=== PATIENT | female | born 1980 | race Caucasian/White ===

== ENCOUNTER → 2016-09-20 | Outpatient (CLI) | payer OTHER | LOC: FIMAGING 09:53 | PROVIDERS: ATTEND Obstetrics & Gynecology | DX: O09.521 Supervision of elderly multigravida, first trimester (principal); Z3A.12 12 weeks gestation of pregnancy ==

== ENCOUNTER → 2016-11-10 | Outpatient (CLI) | payer OTHER | LOC: FIMAGING 09:59 | PROVIDERS: ATTEND Obstetrics & Gynecology | DX: O09.522 Supervision of elderly multigravida, second trimester (principal); O44.02 Complete placenta previa NOS or without hemorrhage, second trimester; Z3A.19 19 weeks gestation of pregnancy ==

== ENCOUNTER → 2017-01-09 | Outpatient (CLI) | payer OTHER | LOC: FIMAGING 13:50 | PROVIDERS: ATTEND Obstetrics & Gynecology | DX: O44.02 Complete placenta previa NOS or without hemorrhage, second trimester (principal); Z3A.28 28 weeks gestation of pregnancy ==

== ENCOUNTER 2017-04-05 06:40 | Inpatient (IN) | payer OTHER ==
[2017-04-05] MEDS ORDERED: OXYTOCIN 20 UNIT in LR 1,000 ML IV PRN (07:43)
[2017-04-05] MEDS ORDERED: TERBUTALINE SULFATE 1 MG/ML VIAL IV PRN (07:43)
[2017-04-05] MEDS ORDERED: OLIVE OIL 118 ML BTL MISC PRN (07:43)
[2017-04-05] MEDS ORDERED: EPSOM SALT 454 GM TP PRN (07:43)
[2017-04-05] MEDS ORDERED: LR 1,000 ML IV PRN (07:43)
[2017-04-05] MEDS ORDERED: OXYTOCIN 10 UNIT/ML VIAL ONE ×2 (08:41→10:12)
[2017-04-05 08:46] LABS: PLATELET COUNT 175 10^3/uL (150-400)
[2017-04-05] MEDS ORDERED: LR 500 ML IV PRN (08:59)
[2017-04-05] MEDS ORDERED: OXYTOCIN 30 UNIT in NS 500 ML IV SCH (09:00)
[2017-04-05] MEDS: guaiFENesin 600 MG TAB.ER PO SCH ×2 (09:52→23:48)
[2017-04-05] MEDS ORDERED: LIDOCAINE 1% 300 MG/30 ML SDV ONE (10:11)
[2017-04-05] MEDS ORDERED: AMMONIA AROMATIC 1 EACH AMP IH ONE (10:12)
[2017-04-05] MEDS ORDERED: OLIVE OIL 118 ML BTL ONE (10:12)
[2017-04-05] MEDS ORDERED: TERBUTALINE SULFATE 1 MG/ML VIAL ONE (10:12)
[2017-04-05] MEDS ORDERED: MISOPROSTOL 200 MCG TAB ONE (10:13)
--- NOTE | 2017-04-05 10:54 | GHP ---
[f rep st] PREOP HISTORY AND PHYSICAL DATE OF ADMISSION: 04/05/2017 ADMITTING DIAGNOSIS: Intrauterine at 40-3/7 weeks' gestation, for elective induction of la bor. HISTORY OF PRESENT ILLNESS: The patient is a 36-year-old 2, para 1-0-0-1, with a last menstr ual period of 06/26/2016, an EDC of 04/02/2017, which was confirmed by an 8-week ultrasound. The toby lora has had good care at [facility] since registration at 8 weeks' gestation and has progressed to 40-3/7 weeks' gestation. Her risk factors include advanced maternal age, age 36. She has had a negative screening and normal ultrasounds in this . She h ad a history of a placenta previa early in , but it resolved with time. She has a history o f a superficial blood clot in her arm when she was on the NuvaRing. She was evaluated by Hematology, had a negative thrombophilia workup. She did stop her hormonal contraception and has never had an i ssue again. Never been on any anticoagulation and was not anticoagulated in this . She had a history of a galactocele after she weaned her first baby, which resolved with pressure. She is al lergic to penicillin. It was a childhood reaction. She is unsure. No other risk factors a nd patient is feeling well today. REVIEW OF SYSTEMS: In general, negative review of systems. She had a Manning catheter placed the even ing of the and had minor cramping overnight, but has resolved. PAST OBSTETRIC HISTORY: In September of 2013, patient had a viable male, 7 pounds 3 ounces, vaginal deliv rachel, greater than 24 hours in labor. She was induced for postdates. Baby weighed 7 pounds 3 ounces. This is her second . PAST GYNECOLOGICAL HISTORY: The above-mentioned superficial blood clot in her arm on the NuvaRing. No other gynecological issues. No abnormal Paps. PAST MEDICAL HISTORY: The patient has no significant past medical history. PAST SURGICAL HISTORY: Only past surgical history was a knee surgery in 2009. ALLERGIES: She is allergic to penicillin. It was childhood reaction. She is not sure. No other al lergies. MEDICATIONS: Include vitamins and DHA. LABORATORY DATA: She is A positive, antibody negative, RPR nonreactive, rubella immune, hepatitis ne gative, HIV negative. Cystic fibrosis, SMA, fragile X negative. Pap normal. Gonorrhea and chlamydi a negative. was negative. One-hour GTT 137, 3-hour was normal. GBS is negative. SOCIAL HISTORY: She is . She lives with her and her son. She works in [employer]. She denies tobacco, alcohol, and drug use. FAMILY HISTORY: Paternal grandmother and paternal uncle had myocardial infarctions and heart disease . Mother has chronic hypertension. Maternal grandfather emphysema. Maternal uncle diabetes. Mary r has gallbladder disease. Father has migraines. Mother and brother both have anxiety disorders. T hat is all. OBJECTIVE: VITAL SIGNS: Today she is afebrile. Vital signs are stable. heart tones were 140 s, reactive, moderate variability, category 1. Contractions are irregular. GENITOURINARY: Cervix: On exam, Manning catheter was removed without difficulty. Her cervix is 4, 75 %, -1, with a bulging bag of water. The baby is cephalic. ASSESSMENT AND PLAN: A 36-year-old, 2, para 1-0-0-1, at 40-3/7 weeks' gestation for inductio n of labor. The patient is on Pitocin per protocol. We will increase this morning and have patient active. The patient will desire an epidural for pain control and will have artificial rupture of mem branes when comfortable. /[id number]/MODL
[2017-04-05] MEDS ORDERED: fentaNYL 2MCG/ML/BUP 0.1% RTU 100 ML BAG EP ONE (12:30)
[2017-04-05] MEDS ORDERED: fentaNYL 100 MCG/2 ML INJ ONE (12:30)
[2017-04-05] MEDS ORDERED: BUPIVACAINE 0.25% 30 ML SDV ONE (12:31)
[2017-04-05] MEDS ORDERED: PHENYLEPHRINE HCL 100 MCG/ML SYR IVP PRN (13:43)
[2017-04-05] MEDS ORDERED: ONDANSETRON 4 MG/2 ML VIAL IVP PRN (13:43)
--- NOTE | 2017-04-05 13:43 | PREANESOB ---
Obstetric Pre-Anesthesia Info - General Info Proposed Procedure: CHAO : 2 Para: 1 PETRA: 04/02/17 Gestational Age: 40 week(s) and 3 day(s) - Info Status: Full Term Monitors: External FHR Pattern: Reassuring - Labor Status Pitocin: Planned Indications for Labor Analgesia: Pain Control Labor Epidural: Yes Anesthesia ROS: negative Allergies/Adverse Reactions: Allergy/AdvReac Type Severity Reaction Status Date / Time Penicillins Allergy Unknown Verified 10/04/13 06:33 Home Medications: Medication Instructions Recorded Feosol 1 tab PO DAILY 10/04/13 [place] 3 1,000 mg Softgel 1 tab PO BID 10/04/13 1 tab PO DAILY 10/04/13 Visit Medications: Generic Name Dose Route Start Last Admin Trade Name Freq PRN Reason Stop Dose Admin Guaifenesin 600 mg 04/05/17 09:30 04/05/17 09:52 Mucinex PO 10/02/17 09:29 600 mg BID ASHA Administration Lactated Ringer's 1,000 mls @ 0 mls/hr 04/05/17 07:43 04/05/17 08:30 Lr IV 04/06/17 07:42 1,000 mls PRN PRN Administration SEE PROTOCOL CONDITIONS Protocol Per Protocol Oxytocin 20 unit/ Lactated 1,002 mls @ 150 mls/hr 04/05/17 07:43 Ringer's IV PRN PRN Post- bleeding Lactated Ringer's 500 mls @ 500 mls/hr 04/05/17 08:59 Lr IV 04/06/17 08:59 PRN PRN Maternal Hypotension Oxytocin 30 unit/ Sodium 503 mls @ 0 mls/hr 04/05/17 09:00 04/05/17 08:45 Chloride IV 10/02/17 08:59 503 mls CONT ASHA Administration Protocol Per Protocol Ibuprofen 600 mg 04/05/17 07:43 Motrin PO 10/02/17 07:42 Q6HRS PRN post , inflammation Magnesium Sulfate 454 gm 04/05/17 07:43 Epsom Salt TP 10/02/17 07:42 Q1H PRN perineal discomfort Ada Oil 118 ml 04/05/17 07:43 Sweet Oil MISC 10/02/17 07:42 ONCE PRN perineal massage Terbutaline Sulfate 0.25 mg 04/05/17 07:43 Brethine IV 10/02/17 07:42 ONCE PRN Tachysystole Discontinued Medications Generic Name Dose Route Start Last Admin Trade Name Ashwin PRN Reason Stop Dose Admin Ammonia (Aromatic Spirit) Confirm 04/05/17 10:12 Ammonia Aromatic Administered 04/05/17 10:13 Dose 1 each IH .STK-MED ONE Bupivacaine HCl Confirm 04/05/17 12:31 Sensorcaine 0.25% Sdv Administered 04/05/17 12:32 Dose 30 ml .ROUTE .STK-MED ONE Fentanyl Confirm 04/05/17 12:30 Sublimaze Administered 04/05/17 12:31 Dose 100 mcg .ROUTE .STK-MED ONE Fentanyl/Bupivacaine HCl Confirm 04/05/17 12:30 Fentanyl/Bupivacaine/Ns 2 Mcg/Ml 0.1% (Premix Administered 04/05/17 12:31 Dose 100 ml EP .STK-MED ONE Lidocaine HCl Confirm 04/05/17 10:11 Lidocaine Hcl 1% Administered 04/05/17 10:12 Dose 300 mg .ROUTE .STK-MED ONE Misoprostol Confirm 04/05/17 10:13 Cytotec Administered 04/05/17 10:14 Dose 1,000 mcg .ROUTE .STK-MED ONE Ada Oil Confirm 04/05/17 10:12 Sweet Oil Administered 04/05/17 10:13 Dose 118 ml .ROUTE .STK-MED ONE Oxytocin Confirm 04/05/17 08:41 Pitocin Administered 04/05/17 08:42 Dose 30 unit .ROUTE .STK-MED ONE Oxytocin Confirm 04/05/17 10:12 Pitocin Administered 04/05/17 10:13 Dose 40 unit .ROUTE .STK-MED ONE Terbutaline Sulfate Confirm 04/05/17 10:12 Brethine Administered 04/05/17 10:13 Dose 1 mg .ROUTE .STK-MED ONE - Anesthesia History Response to Local Anesthetics: Normal Anesthesia & Operative History: No Prior Problems Family Anesthesia History: Not Applicable - Social History Substance Use/Abuse: Denies - Vital Signs Latest Vital Signs (Nursing): see nsg notes Height/Weight (Nursing): Height 162.56 cm Weight 79.832 kg - Focused Exam Neck exam: FROM Mallampati Score: Class 2 Mouth exam: normal dental/mouth exam Pulmonary: no respiratory distress Cardiovascular: regular rate and rhythym Labs: 04/05/17 08:30 Patient ABO/Rh A POSITIVE 04/05/17 08:30 - Plan Consent Signed and on Chart: Yes Patient/Guardian Understands and Agrees to Plan: Yes Urgent/Emergent Case: Elliott taylor completed preop but documented later for safe timely pt care
[2017-04-05] MEDS ORDERED: fentaNYL 2MCG/ML/BUP 0.1% RTU 100 ML EP SCH (14:00)
[2017-04-05] MEDS ORDERED: LR 500 ML IV SCH (14:00)
--- NOTE | 2017-04-05 14:32 | OBPROG ---
Labor Progress Note Assessment/Plan: Assessment: 36 y/o @ 40 3/7 weeks elective IOL secondary to suspected LGA Plan: AROM now and pt is progressing well on pitocin. Comfortable with her epidural. Continue current management. 04/05/17 14:32 Subjective/Intrapartum Course: 04/05/17 14:28 Pt is now comfortable with her epidural. She had stronger contractions prior to epidural. Objective: 04/05/17 08:30 Patient ABO/Rh A POSITIVE 04/05/17 08:30 - SVE Dilation (cm): 6 Effacement (%): 75 Station: -2 Membranes: AROM Amniotic Fluid Color: Clear - Contraction Pattern Assessment Current Contraction Pattern: Regular (Q 3) - FHR Assessment Minor FHR (bpm): 130 FHR Pattern Variability: Moderate FHR Category: 1 - Procedures Non-surgical Procedures: Amniotomy - AP Antepartum Course: 04/05/17 14:30 AMA, normal testing, placenta previa resolved, h/p superficial blood clot in arm on OCP's (-) thrombophillia work-up, h/p galactrocele after weining G1, PCN allergy- childhood rxn Oxytocin Orders Assessment - Pre-Induction/Augmentation Assessment Gestational Age: 40 week(s) and 3 day(s) ICD10 Worksheet Patient Problems: Problems Problem Status Onset (spontaneous vaginal delivery) Acute
--- NOTE | 2017-04-05 17:46 | OBPROG ---
Labor Progress Note Assessment/Plan: Assessment: 36 y/o @ 40 3/7 weeks elective IOL secondary to suspected LGA Plan: Pt is progressing well, will bolus epidural prn. Re check 1-2 hours. status reassuring. 04/05/17 14:32 04/05/17 17:45 Subjective/Intrapartum Course: 04/05/17 14:28 Pt is now comfortable with her epidural. She had stronger contractions prior to epidural. 04/05/17 17:44 Pt is doing well feel some increased pelvic pain and rectal pressure. Objective: 04/05/17 08:30 Patient ABO/Rh A POSITIVE 04/05/17 08:30 - SVE Dilation (cm): 8 Effacement (%): 90 Station: 0 Membranes: AROM Amniotic Fluid Color: Clear - Contraction Pattern Assessment Current Contraction Pattern: Regular (Q 3-4) - FHR Assessment Minor FHR (bpm): 140 FHR Pattern Variability: Moderate FHR Category: 1 - Procedures Non-surgical Procedures: Amniotomy - AP Antepartum Course: 04/05/17 14:30 AMA, normal testing, placenta previa resolved, h/p superficial blood clot in arm on OCP's (-) thrombophillia work-up, h/p galactrocele after weining G1, PCN allergy- childhood rxn Oxytocin Orders Assessment - Pre-Induction/Augmentation Assessment Gestational Age: 40 week(s) and 3 day(s) ICD10 Worksheet Patient Problems: Problems Problem Status Onset (spontaneous vaginal delivery) Acute
[2017-04-05] MEDS ORDERED: HYDROCODONE/APAP 5/325 TAB PO PRN (20:29)
[2017-04-05] MEDS ORDERED: ACETAMINOPHEN 325 MG TAB PO PRN (20:29)
[2017-04-05] MEDS ORDERED: HYDROCORTISONE 0.5% CREAM TP PRN (20:29)
[2017-04-05] MEDS ORDERED: SIMETHICONE 80 MG TAB CHEW PO PRN (20:29)
--- NOTE | 2017-04-05 20:33 | OBDEL ---
Info Type: Vaginal Presentation at Delivery: Vertex L&D Analgesia/Anesthesia Type: Epidural GBS+: No Intrapartum Medications: Generic Name Dose Route Start Last Admin Trade Name Freq PRN Reason Stop Dose Admin Guaifenesin 600 mg 04/05/17 09:30 04/05/17 09:52 Mucinex PO 10/02/17 09:29 600 mg BID ASHA Administration Lactated Ringer's 1,000 mls @ 0 mls/hr 04/05/17 07:43 04/05/17 08:30 Lr IV 04/06/17 07:42 1,000 mls PRN PRN Administration SEE PROTOCOL CONDITIONS Protocol Per Protocol Oxytocin 30 unit/ Sodium 503 mls @ 0 mls/hr 04/05/17 09:00 04/05/17 08:45 Chloride IV 10/02/17 08:59 503 mls CONT ASHA Administration Protocol Per Protocol - Hospital Course Intrapartum: 04/05/17 14:28 Pt is now comfortable with her epidural. She had stronger contractions prior to epidural. 04/05/17 17:44 Pt is doing well feel some increased pelvic pain and rectal pressure. Indications for Delivery: Elective (LGA) Vaginal Delivery - Delivery Provider Delivery Physician/CNM: Ashley Ferro - Labor and Delivery Onset of Contractions Date: 04/05/17 Onset of Contractions Time: 16:00 Onset of Contractions Type: Induced Rupture of Membranes Date: 04/05/17 Rupture of Membranes Time: 14:26 Rupture of Membranes Type: Artificial Amniotic Fluid Color: Clear Dilation Complete Date: 04/05/17 Dilation Complete Time: 18:45 Placenta Delivery Date: 04/05/17 Placenta Delivery Time: 20:22 Total Hours of Labor: 4 Non-surgical Procedures: Amniotomy Laceration: Other (Specify) (intact perineum) Vaginal Sponge Count Correct: Yes Vaginal Needle Count Correct: Yes Vaginal Sweep Performed: No EBL: 200 Delivery Events: None - Medications Labor Augmentation/Induction Methods Used: Pitocin Labor Augmentation/Induction Indication: Elective, LGA Data PETRA: 04/02/17 Gestational Age: 40 week(s) and 3 day(s) Minor Delivery Date: 04/05/17 Delivery Time: 20:18 Sex of : Male Score (1 Min): 8 Score (5 Min): 9 ICD10 Worksheet Patient Problems: Problems Problem Status Onset (spontaneous vaginal delivery) Acute
[2017-04-05] MEDS: IBUPROFEN 600 MG TAB PO PRN (20:40)
[2017-04-06] MEDS: IBUPROFEN 600 MG TAB PO PRN ×4 (02:39→21:54)
[2017-04-06] MEDS: DOCUSATE SODIUM 100 MG CAP PO PRN ×2 (07:54→21:54)
--- NOTE | 2017-04-06 09:08 | OBPP ---
Progress Note Assessment/Plan: Assessment: s/p PPD # 1 - pt is stable Plan: Continue routine pp care Plan for d/c home in am /12 04/06/17 09:07 Subjective/ Course: 04/06/17 09:07 Pt seen and examined. She is having some cramping while BF, relief with Motrin. Mod lochia. She is OOB, anne regular diet, voiding and passing flatus. BF without difficulty. Objective: 04/05/17 08:30 Patient ABO/Rh A POSITIVE 04/05/17 08:30 Temp Pulse Resp BP Pulse Ox 36.6 C 91 18 109/74 96 04/06/17 02:20 04/06/17 02:20 04/06/17 00:05 04/06/17 02:20 04/06/17 00:05 Uterine Position/Fundal Height: Umbilicus -2 Uterine Tone: Firm Physical Exam - Physical Exam Respiratory: lungs clear, normal breath sounds Cardiac/Chest: regular rate, rhythm Abdomen: normal bowel sounds, non-tender, soft, flatus (+) Extremities: non-tender, normal inspection Skin: normal color, warm/dry Neuro/Psych: alert, normal mood/affect, oriented x 3
[2017-04-06] MEDS: guaiFENesin 600 MG TAB.ER PO SCH ×2 (11:33→21:53)
[2017-04-06] MEDS ORDERED: METOPROLOL TARTRATE 5 MG/5 ML INJ ONE (12:35)
[2017-04-06 20:49] VITALS: RESP 18
[2017-04-07] MEDS: IBUPROFEN 600 MG TAB PO PRN ×2 (03:58→09:53)
[2017-04-07 08:40] VITALS: BP 123/76; PULSE 79; TEMP 97.1; O2SAT 96
[2017-04-07] MEDS: guaiFENesin 600 MG TAB.ER PO SCH (09:53)
[2017-04-07] MEDS: DOCUSATE SODIUM 100 MG CAP PO PRN (09:53)
--- NOTE | 2017-04-07 10:04 | OBPP ---
Progress Note Assessment/Plan: Assessment: PPD 2 s/p , LGA baby Plan: D/C home 04/07/17 10:01 Subjective/ Course: 04/06/17 09:07 Pt seen and examined. She is having some cramping while BF, relief with Motrin. Mod lochia. She is OOB, anne regular diet, voiding and passing flatus. BF without difficulty. 04/07/17 10:02 Pt doing well. Baby was non-stop latched last noc but is quiet now. Latch is good. Mod cramps but controlled with ibu. scant bld from night but was reduced yesterday. urinating fine but notices less control initially with urgency. Objective: 04/05/17 08:30 Patient ABO/Rh A POSITIVE 04/05/17 08:30 Temp Pulse Resp BP Pulse Ox 36.2 C 79 18 123/76 H 96 04/07/17 08:05 04/07/17 08:05 04/07/17 08:05 04/07/17 08:05 04/07/17 08:05 Uterine Position/Fundal Height: Umbilicus -1 Uterine Tone: Firm Physical Exam - Physical Exam Abdomen: non-tender, soft, other (FF at u-1) Extremities: non-tender, pedal edema (mild) Skin: normal color, warm/dry Neuro/Psych: alert, normal mood/affect
== END 2017-04-07 13:30 | disposition home or self-care (01) | DRG 775 ==
LOC: FLD 06:40 → FOB 04-06 00:16
PROVIDERS: ADMIT Obstetrics & Gynecology; ATTEND Obstetrics & Gynecology
PROC: 3E033VJ Introduction of Other Hormone into Peripheral Vein, Percutaneous Approach (ICD-10-PCS; principal; 2017-04-05)
PROC: 10E0XZZ Delivery of Products of Conception, External Approach (ICD-10-PCS; principal; 2017-04-05)
DX: O48.0 Post-term pregnancy (principal); O36.62X0 Maternal care for excessive fetal growth, second trimester, not applicable or unspecified; Z3A.40 40 weeks gestation of pregnancy; Z37.0 Single live birth; Z86.718 Personal history of other venous thrombosis and embolism; Z88.0 Allergy status to penicillin
CPT/HCPCS: J3010; J3105